=== PATIENT | female | born 1985 | race Two or more races ===

== ENCOUNTER 2023-04-05 17:05 | Emergency (ER) | payer OTHER, SELFPAY ==
--- NOTE | 2023-04-05 17:22 | ED.GENADULT ---
HPI - General Adult General Chief complaint: Back Pain/Injury Stated complaint: lower back pain Time Seen by Provider: 04/05/23 17:42 Source: patient Mode of arrival: ambulatory Limitations: no limitations History of Present Illness HPI narrative: 38 y o female hx of back fractures (unknown type, quantity, exact location, but likely compression based on description) presenting with atraumatic low back pain b/l but L > R. States for the past few days she has been having severe low back pain radiating to her groin and down her lower extremities. She states she is able to ambulate and bend over but that it is painful. She also states that when she bends forward she feels and hears a pop . Denies fevers, chills, numbness, tingling, saddle paresthesias, loss of bowel or bladder function, dizziness, chest pain, shortness of breath, abdominal pain. No hx of IVDU Related Data Previous Rx's Medication Instructions Recorded cyclobenzaprine 10 mg tablet 10 mg PO BEDTIME PRN muscle spasm 04/05/23 #7 tabs ketorolac 10 mg tablet 10 mg PO TID PRN pain 5 days #15 04/05/23 tabs lidocaine 5 % topical patch 1 patch topical DAILY PRN pain #15 04/05/23 ea nitrofurantoin macrocrystal 100 mg 100 mg PO BID 5 days #10 caps 04/05/23 capsule Allergies Allergy/AdvReac Type Severity Reaction Status Date / Time No Known Allergies Allergy Verified 04/05/23 17:23 Review of Systems Review of Systems: Constitutional : No Weight loss, No Fever, No Chills, No Fatigue, No Malaise ENT/Mouth : No sore throat, No Rhinorrhea Cardiovascular : No Chest Pain, No SOB, No Dyspnea on Exertion, No Orthopnea, No Edema, No Palpitations Respiratory : No Cough, No Sputum, No Wheezing Gastrointestinal : No Nausea, No Vomiting, No Diarrhea, No Constipation, No abdominal Pain, No Hematochezia, No Melena Genitourinary : No Dysuria, No Urinary Frequency, No Hematuria, Musculoskeletal : + joint pain, No Myalgias, No Joint Swelling Skin : No Skin Lesions, No rash Neuro : No Weakness, No Numbness, No Dizziness, No Headache Psych : No Anxiety/Panic, No Depression All other systems reviewed and are negative Yes all other systems are reviewed and are negative PMFSH Past Medical History Attestation statement: The following information was validated with the patient. Source: old records reviewed and nursing notes reviewed Social History Social History Unable to assess alcohol history related to: Unknown Smoked in Last 30 Days: No Use of substances other than those prescribed or required for medical reasons: No Advance Directives: No Advance Directives Information Provided: No Patient : No Physical Exam ED Vital Signs: Vital Signs - 24 hr 04/05/23 17:23 Temperature 98.5 F Pulse Rate 79 Respiratory Rate 18 Blood Pressure 124/77 Pulse Oximetry 100 Oxygen Delivery Method Room Air BMI result Body Mass Index 27.5 VSS Appearance: Alert.? Oriented X3.? No acute distress.? Head: Normocephalic, atraumatic, no step-offs or deformities Eyes: Pupils equal, round and reactive to light.? Neck: Normal inspection.? Neck supple.? CVS: Normal heart rate and rhythm.? Pulses normal.? Respiratory: No respiratory distress.? Breath sounds normal.? Abdomen: Soft and nontender.? Skin: Skin warm and dry.? Normal skin color.? Normal skin turgor.? Extremities: No lower extremity edema.? No calf ttp. 5/5 strength to bilateral upper and lower extremities including dorsiflexion and plantar flexion b/l. 2+ patellar reflexes b/l. 2+ DP, PT, AT, Popliteal pulses, cap refill <2 s b/l. Gross sensation in tact, no foot drop b/l. Full ROM of the hips, knees, ankles b/l Back: No midline tenderness, no C-spine tenderness, full range of motion, no CVA tenderness bilaterally. No overlying skin changes. Able to complete full ROM but painful. +TTP to the L lumbar paraspinous muscles. No saddle paresthesias, sensation intact. Neuro: Oriented X 3.? No motor deficit.? No sensory deficit. CN 2-12 intact Course Course Course Narrative: This is a rapid medical exam: Additional HPI, ROS, PE not included below will be deferred to primary provider. Patient is a 38-year-old female presenting to the ED with complaint of low back pain for the past 4 days. Reports prior injury over a year ago. States pain is to left lumbar area and radiates down left leg. Plan: UA, lumbar x-ray Reevaluation(s) Reevaluation #1: Sign out to [facility] [employer] pending imaging, urine, reeval and dispo Time: 18:32 Reevaluation #2: Patient signed out to me by RAUL Sherwood. Lumbar x-ray unremarkable. 2+ bacteria, 1+ leukocytes, 0-5 WBCs on UA, will treat for UTI as discussed with patient by previous provider. Prescribed macrobid BID x 5 days. Feel patient is stable for discharge home at this time. All results discussed with patient and all questions answered. Return precautions discussed at bedside. Patient verbalized understanding of and agreement with plan. Time: 20:19 Medications Administered Discontinued Medications Generic Name Dose Route Start Last Admin Trade Name Freq PRN Reason Stop Dose Admin Ketorolac Tromethamine 30 mg 04/05/23 18:26 04/05/23 19:46 Ketorolac Tromethamine 15 Mg/Ml Vial IM 04/05/23 18:27 30 mg ONCE ONE Administration Lidocaine 1 patch 04/05/23 18:42 04/05/23 19:45 Lidocaine 4 % Patch Adh..Patch TRANSDERMA 04/05/23 18:43 1 patch ONCE ONE Administration Protocol Medical Decision Making Medical Decision Making MDM Narrative: 38 y o female presenting for evaluation of atraumatic lower back pain b/l (L>R) x few days PE significant for No midline tenderness, no C-spine tenderness, full range of motion, no CVA tenderness bilaterally. No overlying skin changes. Able to complete full ROM but painful. +TTP to the L lumbar paraspinous muscles. No saddle paresthesias, sensation intact. 5/5 strength to bilateral upper and lower extremities including dorsiflexion and plantar flexion b/l. 2+ patellar reflexes b/l. 2+ DP, PT, AT, Popliteal pulses, cap refill <2 s b/l. Likely sciatica vs back strain/sprain vs nerve impingement. Less likely fracture or dislocation given no acute trauma, however will r/o with imaging. Not likely UTI vs pyelonephritis vs nephrolithiasis given no urinary symptoms, afebrile, no CVA, however, will r/o with UA. No concern for cauda equina, ambulating without difficulty, no saddle paresthesias, gross sensation intact, no loss of bowel or bladder function. No concern for epidural abscess or osteomyelitis, no hx of IVDU, prior infection, trauma, otherwise well appearing. No signs of infection. No signs of cord compression Plan -- imaging, UA Differential Diagnosis Differential Diagnoses: The differential diagnosis associated with the presentation includes Likely sciatica vs back strain/sprain vs nerve impingement. Less likely fracture or dislocation given no acute trauma, however will r/o with imaging. Not likely UTI vs pyelonephritis vs nephrolithiasis given no urinary symptoms, afebrile, no CVA, however, will r/o with UA. No concern for cauda equina, ambulating without difficulty, no saddle paresthesias, gross sensation intact, no loss of bowel or bladder function. No concern for epidural abscess or osteomyelitis, no hx of IVDU, prior infection, trauma, otherwise well appearing. No signs of infection. No signs of cord compression Admission/Observation Consideration of admission/observation: Escalation of care including admission/observation considered No indication Lab Data MDM Lab Attestation statement: I reviewed the patient's lab results. Labs: Lab Results 04/05/23 Range/Units 18:12 Urine Color Yellow Urine Appearance Clear Urine pH 6.5 (5.0-9.0) Ur Specific Penrose 1.015 (1.005-1.025) Urine Protein Negative (Neg-Trace) mg/dL Urine Glucose (UA) Negative (Negative) mg/dL Urine Ketones Negative (Negative) mg/dL Urine Blood Trace H (Negative) Urine Nitrite Negative (Negative) Ur Leukocyte Esterase Small (1+) H (Negative) Urine RBC 0-2 (0-2) /HPF Urine WBC 0-5 (0-5) /HPF Ur Squamous Epith Cells 6-10 (0-2) /HPF Urine Bacteria 2+ (None Seen) Hyaline Casts 0-2 (0-2) /LPF Independent Interpretation I performed an independent interpretation of an: Plain X-Ray Radiology Impression Discussion of test interpretation with radiology: I have reviewed the radiologist's reading. External Record Review External record reviewed: Office record, Prior outpatient labs and Prior outpatient radiology Critical Care Time Critical Care Time Critical Care Time: No Discharge Plan Discharge Clinical Impression: Low back pain, Acute lumbar back pain, UTI (urinary tract infection) Patient Disposition: Home, Self-Care Instructions: Acute Low Back Pain (ED), Back Pain (ED) Additional Instructions: Take your medications as prescribed. If you were prescribed antibiotics today, it is important that you take your medication to their entirety, do not skip any doses, do not finish them early. Follow-up with your primary care provider this week. Return to the emergency department with new or worsening symptoms. Such as fevers, chills, chest pain, shortness of breath, nausea, vomiting, dizziness, headache, vision changes, lethargy In case of emergency call 911 Toradol has been sent to your pharmacy, you tolerated this well in the department. Please take this as prescribed do not take this with ibuprofen, or other NSAIDs, do not mix this with alcohol. Side effects of this medication including increased risk for bleeding and possible kidney injury. Prescriptions: New cyclobenzaprine 10 mg tablet 10 mg PO BEDTIME PRN (Reason: muscle spasm) Qty: 7 0RF ketorolac 10 mg tablet 10 mg PO TID PRN (Reason: pain) 5 Days Qty: 15 0RF lidocaine 5 % adhesive patch,medicated 1 patch topical DAILY PRN (Reason: pain) Qty: 15 0RF Rx Instructions: leave on most painful area for up to 12 hrs nitrofurantoin macrocrystal 100 mg capsule 100 mg PO BID 5 Days Qty: 10 0RF Rx Instructions: must administer with a meal/food Referrals: [facility] [Provider Group] - 2 days
[2023-04-05 17:23] VITALS: BP 124/77; PULSE 79; RESP 18; TEMP 36.9; O2SAT 100; BMI 27.5
== END 2023-04-05 22:19 | disposition home or self-care (01) ==
PROVIDERS: Emergency Provider Emergency Medicine Emergency Medical Services
DX: M54.50 Low back pain, unspecified (principal); N39.0 Urinary tract infection, site not specified
CPT/HCPCS: 72100; 81001; 87086; 96372; 99284; J1885